=== PATIENT | male | born 1935 | race African-American/Black ===

== ENCOUNTER 2022-07-10 17:09 | Inpatient (IN) | payer BC, MEDICAID ==
[~2022-07-10] VITALS: Ht 172.7 cm; Wt 84.8 kg
[2022-07-10 20:30] LABS: BASOPHILS % 0.7 % (0.0-2.0); HEMATOCRIT. 42.6 % (42.0-52.0); HEMOGLOBIN. 14.1 g/dL (14.0-18.0); LYMPHOCYTES % 7.4 % (20.0-50.0); MEAN CORPUSCULAR HEMOGLOBIN 31.6 pg (28.0-32.0); MEAN PLATELET VOLUME 8.9 fl (7.4-10.4); MONOCYTES % 7.4 % (2.0-8.0); NEUTROPHILS % 84.5 % (40.0-76.0); PLATELET 275 x1000/uL (130-400); RED BLOOD CELL COUNT 4.48 mill/uL (4.7-6.1); RED CELL DISTRIBUTION WIDTH 17.2 % (11.6-14.6)
[2022-07-10 20:35] LABS: CHLORIDE 92 mEq/L (98-107)
[2022-07-10 22:36] LABS: INR 1.4; PROTHROMBIN TIME 14.5 sec (9.6-11.0)
[2022-07-11] VITALS (13 sets, daily range): BP systolic 95–134; BP diastolic 44–73
[2022-07-11] MEDS ORDERED: ASPIRIN 81MG TABLET PO ONE (00:15)
[2022-07-11] MEDS ORDERED: SODIUM CHLORIDE 0.9% 250 ML IV ONE (01:00)
[2022-07-11] MEDS ORDERED: ACETAMINOPHEN 325MG TABLET PO PRN (11:45)
[2022-07-11] MEDS ORDERED: ONDANSETRON HCL 4MG/2ML INJ IV PRN (11:45)
[2022-07-11] MEDS: ENOXAPARIN 80MG/0.8ML SYR SUBCUT SCH (11:54)
[2022-07-11] MEDS ORDERED: REN800 PO (12:37)
[2022-07-11] MEDS ORDERED: ATOR10TA69 PO (12:37)
[2022-07-11] MEDS: DILTIAZEM HCL 60MG TABLET PO SCH ×2 (13:15→17:25)
[2022-07-11] MEDS ORDERED: DILTIAZEM HCL 30MG TABLET PO SCH (14:00)
[2022-07-11 17:44] LABS: CREATINE KINASE MB FRACTION 2.4 ng/mL (0.5-3.6)
[2022-07-11 18:01] LABS: HEPATITIS B SURFACE ANTIGEN NEGATIVE
[2022-07-11 21:45] LABS: T4 FREE 1.32 ng/dL (0.76-1.46)
[2022-07-12] VITALS (8 sets, daily range): BP systolic 90–113; BP diastolic 28–60
[2022-07-12] MEDS: DILTIAZEM HCL 60MG TABLET PO SCH ×4 (06:00→17:24)
[2022-07-12 06:43] LABS: BASOPHILS % 0.3 % (0.0-2.0); HEMOGLOBIN. 14.2 g/dL (14.0-18.0); LYMPHOCYTES % 10.7 % (20.0-50.0); MEAN CORPUSCULAR HEMOGLOBIN 31.3 pg (28.0-32.0); MEAN CORPUSCULAR VOLUME 94.4 fL (80.0-94.0); MEAN PLATELET VOLUME 8.2 fl (7.4-10.4); MONOCYTES % 9.8 % (2.0-8.0); NEUTROPHILS % 79.2 % (40.0-76.0); PLATELET 250 x1000/uL (130-400); RED BLOOD CELL COUNT 4.55 mill/uL (4.7-6.1)
[2022-07-12 06:44] LABS: CREATINE KINASE MB FRACTION 3.6 ng/mL (0.5-3.6)
[2022-07-12] MEDS: ENOXAPARIN 80MG/0.8ML SYR SUBCUT SCH (08:21)
[2022-07-12] MEDS ORDERED: DIGOXIN 125MCG TABLET PO NR (10:15)
[2022-07-12] MEDS ORDERED: APIX5TAB MT (12:43)
[2022-07-12] MEDS ORDERED: MIDO5TAB4 MT (12:56)
[2022-07-12] MEDS ORDERED: CARV6.2548 MT (12:56)
[2022-07-12 17:22] LABS: CREATINE KINASE 394 IU/L (39-308)
[2022-07-12] MEDS: DIGOXIN 125MCG TABLET PO SCH (17:25)
[2022-07-13] VITALS: BP 96/68
[2022-07-13 04:00] VITALS: BP 102/60
[2022-07-13] MEDS: DILTIAZEM HCL 60MG TABLET PO SCH ×2 (06:00)
[2022-07-13 08:00] VITALS: BP 120/67
[2022-07-13 08:49] LABS: BASOPHILS % 0.1 % (0.0-2.0); HEMATOCRIT. 41.9 % (42.0-52.0); HEMOGLOBIN. 13.9 g/dL (14.0-18.0); LYMPHOCYTES % 13.6 % (20.0-50.0); MEAN CORPUSCULAR HEMOGLOBIN 31.3 pg (28.0-32.0); MEAN CORPUSCULAR VOLUME 94.5 fL (80.0-94.0); MEAN PLATELET VOLUME 8.4 fl (7.4-10.4); MONOCYTES % 10.7 % (2.0-8.0); NEUTROPHILS % 75.6 % (40.0-76.0); PLATELET 269 x1000/uL (130-400); RED BLOOD CELL COUNT 4.44 mill/uL (4.7-6.1); RED CELL DISTRIBUTION WIDTH 16.7 % (11.6-14.6)
[2022-07-13] MEDS: ENOXAPARIN 80MG/0.8ML SYR SUBCUT SCH (09:07)
[2022-07-13 12:00] VITALS: BP 102/71
[2022-07-13] MEDS ORDERED: DILTIAZEM HCL 30MG TABLET PO SCH (12:00)
[2022-07-13 16:00] VITALS: BP 95/65
[2022-07-13] MEDS: MIDODRINE HCL 5MG TABLET PO SCH (17:29)
[2022-07-13] MEDS: DIGOXIN 125MCG TABLET PO SCH (17:29)
[2022-07-13 20:00] VITALS: BP 100/68
[2022-07-13] MEDS: CARVEDILOL 6.25 MG TABLET PO SCH (20:10)
[2022-07-14] VITALS (16 sets, daily range): BP systolic 86–156; BP diastolic 40–73
[2022-07-14] MEDS: MIDODRINE HCL 5MG TABLET PO SCH (06:37)
[2022-07-14 06:51] LABS: BASOPHILS % 0.3 % (0.0-2.0); EOSINOPHILS % 0.4 % (0.0-5.0); HEMATOCRIT. 42.5 % (42.0-52.0); HEMOGLOBIN. 14.5 g/dL (14.0-18.0); LYMPHOCYTES % 13.6 % (20.0-50.0); MEAN PLATELET VOLUME 8.5 fl (7.4-10.4); MONOCYTES % 8.2 % (2.0-8.0); NEUTROPHILS % 77.5 % (40.0-76.0); PLATELET 249 x1000/uL (130-400); RED BLOOD CELL COUNT 4.52 mill/uL (4.7-6.1); RED CELL DISTRIBUTION WIDTH 16.9 % (11.6-14.6)
[2022-07-14 06:58] LABS: DIGOXIN 0.5 ng/mL (0.9-2.0)
[2022-07-14] MEDS: CARVEDILOL 6.25 MG TABLET PO SCH ×2 (08:36→20:30)
[2022-07-14] MEDS: ENOXAPARIN 80MG/0.8ML SYR SUBCUT SCH (08:37)
[2022-07-14] MEDS: DIGOXIN 125MCG TABLET PO SCH (17:37)
[2022-07-15 04:00] VITALS: BP 104/57
[2022-07-15 08:00] VITALS: BP 98/55
[2022-07-15] MEDS: CARVEDILOL 6.25 MG TABLET PO SCH ×2 (09:24→20:44)
[2022-07-15] MEDS: ENOXAPARIN 80MG/0.8ML SYR SUBCUT SCH (09:25)
[2022-07-15 12:00] VITALS: BP 122/65
[2022-07-15 16:00] VITALS: BP 116/67
[2022-07-15] MEDS: DIGOXIN 125MCG TABLET PO SCH (17:59)
[2022-07-15 20:00] VITALS: BP 114/60
[2022-07-16] VITALS (14 sets, daily range): BP systolic 88–126; BP diastolic 44–68
[2022-07-16 07:57] LABS: BASOPHILS % 0.5 % (0.0-2.0); EOSINOPHILS % 1.2 % (0.0-5.0); HEMATOCRIT. 39.6 % (42.0-52.0); HEMOGLOBIN. 13.6 g/dL (14.0-18.0); LYMPHOCYTES % 10.8 % (20.0-50.0); MEAN CORPUSCULAR HEMOGLOBIN 31.7 pg (28.0-32.0); MEAN CORPUSCULAR VOLUME 92.6 fL (80.0-94.0); MEAN PLATELET VOLUME 8.2 fl (7.4-10.4); MONOCYTES % 6.3 % (2.0-8.0); NEUTROPHILS % 81.2 % (40.0-76.0); PLATELET 268 x1000/uL (130-400); RED BLOOD CELL COUNT 4.27 mill/uL (4.7-6.1); RED CELL DISTRIBUTION WIDTH 16.4 % (11.6-14.6)
[2022-07-16] MEDS: ENOXAPARIN 80MG/0.8ML SYR SUBCUT SCH (09:00)
[2022-07-16] MEDS: CARVEDILOL 6.25 MG TABLET PO SCH (09:00)
[2022-07-16] MEDS: APIXABAN 2.5 MG TABLET PO SCH ×2 (10:30→17:13)
[2022-07-16 14:19] LABS: HEPATITIS B SURFACE ANTIGEN NEGATIVE
[2022-07-16] MEDS: CARVEDILOL 12.5MG TABLET PO SCH (20:26)
[2022-07-17] VITALS: BP 98/46
[2022-07-17 04:00] VITALS: BP 100/56
[2022-07-17 08:00] VITALS: BP 94/49
[2022-07-17] MEDS: CARVEDILOL 12.5MG TABLET PO SCH ×2 (08:57→20:00)
[2022-07-17] MEDS: APIXABAN 2.5 MG TABLET PO SCH ×2 (08:57→17:18)
[2022-07-17 12:00] VITALS: BP 93/47
[2022-07-17 20:00] VITALS: BP 88/50
[2022-07-18] VITALS (7 sets, daily range): BP systolic 94–105; BP diastolic 47–57
[2022-07-18] MEDS: APIXABAN 2.5 MG TABLET PO SCH ×2 (08:56→17:42)
[2022-07-18] MEDS: CARVEDILOL 12.5MG TABLET PO SCH ×2 (08:56→20:40)
[2022-07-19] VITALS (15 sets, daily range): BP systolic 84–120; BP diastolic 48–79
[2022-07-19 07:36] LABS: HEMOGLOBIN. 13.7 g/dL (14.0-18.0); MEAN CORPUSCULAR HEMOGLOBIN 31.6 pg (28.0-32.0); MEAN CORPUSCULAR VOLUME 92.3 fL (80.0-94.0); MEAN PLATELET VOLUME 8.1 fl (7.4-10.4); PLATELET 277 x1000/uL (130-400); RED BLOOD CELL COUNT 4.33 mill/uL (4.7-6.1); RED CELL DISTRIBUTION WIDTH 16.1 % (11.6-14.6)
[2022-07-19] MEDS: APIXABAN 2.5 MG TABLET PO SCH ×2 (09:00→17:19)
[2022-07-19] MEDS: CARVEDILOL 12.5MG TABLET PO SCH ×2 (09:00→21:00)
[2022-07-19 09:52] LABS: PLATELET ESTIMATE NORMAL
[2022-07-19] MEDS ORDERED: TEMAZEPAM 15MG CAPSULE PO PRN (22:45)
[2022-07-20] VITALS: BP 93/40
[2022-07-20 04:00] VITALS: BP 95/46
[2022-07-20] MEDS ORDERED: MIDODRINE HCL 5MG TABLET PO NR (05:15)
[2022-07-20] MEDS ORDERED: SODIUM CHLORIDE 0.9% 250 ML IV NR (05:15)
[2022-07-20] MEDS ORDERED: MIDODRINE HCL 5MG TABLET PO ONE (05:30)
[2022-07-20 08:00] VITALS: BP 82/46
[2022-07-20] MEDS: CARVEDILOL 12.5MG TABLET PO SCH ×2 (09:00→21:00)
[2022-07-20] MEDS: APIXABAN 2.5 MG TABLET PO SCH ×2 (09:43→17:08)
[2022-07-20 12:00] VITALS: BP 83/46
[2022-07-20] MEDS ORDERED: NYSTATIN POWDER 15GM TOP PRN (14:00)
[2022-07-20] MEDS ORDERED: MENTHOL/LANOLIN/CALAMINE/ZN OX OINT 71GM TOP PRN (14:00)
[2022-07-20 16:00] VITALS: BP 98/48
[2022-07-20 20:31] VITALS: BP 92/46
[2022-07-21 00:40] VITALS: BP_SYST 130; BP_SYST 91; BP_DIAS 49; BP_DIAS 66
[2022-07-21 04:00] VITALS: BP 84/45
[2022-07-21 08:00] VITALS: BP_SYST 79; BP_SYST 86; BP_DIAS 37; BP_DIAS 42
[2022-07-21] MEDS: CARVEDILOL 12.5MG TABLET PO SCH ×2 (08:48→21:00)
[2022-07-21] MEDS: MIDODRINE HCL 5MG TABLET PO SCH ×3 (08:48→22:26)
[2022-07-21] MEDS: APIXABAN 2.5 MG TABLET PO SCH ×2 (08:48→17:14)
[2022-07-21 12:00] VITALS: BP 94/44
[2022-07-21 16:00] VITALS: BP 99/42
[2022-07-21 17:44] LABS: HEPATITIS B SURFACE ANTIGEN NEGATIVE
[2022-07-21 20:00] VITALS: BP 82/49
[2022-07-22] VITALS (7 sets, daily range): BP systolic 77–107; BP diastolic 37–63
[2022-07-22] MEDS: MIDODRINE HCL 5MG TABLET PO SCH (06:29)
[2022-07-22] MEDS ORDERED: EPINEPHRINE 0.1MG/ML (1:10,000) 10ML SYR ONE (08:33)
[2022-07-22] MEDS ORDERED: AMIODARONE HCL 50MG/ML 3ML VIAL IV ONE (08:33)
[2022-07-22] MEDS ORDERED: SODIUM BICARBONATE 8.4% 1 MEQ/ML 50ML SYR IV ONE (08:33)
[2022-07-22] MEDS: CARVEDILOL 12.5MG TABLET PO SCH (09:00)
[2022-07-22] MEDS: APIXABAN 2.5 MG TABLET PO SCH (09:00)
== END 2022-07-22 10:08 ==
LOC: ER 17:09 → MICUSO 23:44 → EDBEDREQ 23:48 → 8WST 07-11 10:24 → 7WST 07-17 15:53
PROVIDERS: ADMIT Internal Medicine Pulmonary Disease; ATTEND Internal Medicine Pulmonary Disease
PROC: 5A1D70Z Performance of Urinary Filtration, Intermittent, Less than 6 Hours Per Day (ICD-10-PCS; 2022-07-11)
PROC: 5A1D70Z Performance of Urinary Filtration, Intermittent, Less than 6 Hours Per Day (ICD-10-PCS; 2022-07-14)
PROC: 5A1D70Z Performance of Urinary Filtration, Intermittent, Less than 6 Hours Per Day (ICD-10-PCS; 2022-07-16)
PROC: 5A1D70Z Performance of Urinary Filtration, Intermittent, Less than 6 Hours Per Day (ICD-10-PCS; 2022-07-19)
PROC: 0BH17EZ Insertion of Endotracheal Airway into Trachea, Via Natural or Artificial Opening (ICD-10-PCS; principal; 2022-07-22)
PROC: 5A1D70Z Performance of Urinary Filtration, Intermittent, Less than 6 Hours Per Day (ICD-10-PCS; 2022-07-22)
PROC: 5A12012 Performance of Cardiac Output, Single, Manual (ICD-10-PCS; 2022-07-22)
DX: I21.4 Non-ST elevation (NSTEMI) myocardial infarction (principal); E43 Unspecified severe protein-calorie malnutrition; N18.6 End stage renal disease; E87.20 Acidosis, unspecified; E87.1 Hypo-osmolality and hyponatremia; I42.0 Dilated cardiomyopathy; I12.0 Hypertensive chronic kidney disease with stage 5 chronic kidney disease or end stage renal disease; I46.9 Cardiac arrest, cause unspecified; Z20.822 Contact with and (suspected) exposure to COVID-19; E11.22 Type 2 diabetes mellitus with diabetic chronic kidney disease; E78.5 Hyperlipidemia, unspecified; E87.5 Hyperkalemia; I48.91 Unspecified atrial fibrillation; I08.0 Rheumatic disorders of both mitral and aortic valves; R41.89 Other symptoms and signs involving cognitive functions and awareness; R53.81 Other malaise; R74.01 Elevation of levels of liver transaminase levels; Z79.01 Long term (current) use of anticoagulants; Z99.2 Dependence on renal dialysis; Z68.28 Body mass index [BMI] 28.0-28.9, adult
CPT/HCPCS: 31500; 36415; 71045; 72170; 80048; 80053; 80061; 80162; 82550; 82553; 82962; 83036; 83605; 83735; 83880; 84145; 84439; 84443; 84480; 84484; 85025; 86705; 86709; 86803; 87340; 87426; 87804; 90935; 92950; 93005; 93306; 97110; 97116; 97162; 97166; 97530; 99291; C1893; C9803; J0282; J1650; J3490; J7050